=== PATIENT | male | born 1985 | race Caucasian/White ===

== ENCOUNTER 2017-06-19 22:08 | Emergency (ER) | payer BC ==
[~2017-06-19] VITALS: Ht 167.6 cm; Wt 101.5 kg
[~2017-06-19 22:08] MED LIST: LEVE1TAB57 PO
[2017-06-19 22:23] VITALS: TEMP 37.1; Ht 167.6 cm; Wt 101.5 kg
[2017-06-19] MEDS ORDERED: DIAZEPAM 5MG TAB PO STA (22:49)
[2017-06-19] MEDS ORDERED: KPP/1000 PO ×2 (23:23)
[2017-06-20] MEDS ORDERED: IBUP-1451 PO (00:31)
--- NOTE | 2017-06-20 00:31 | EMERGENCY ROOM VISIT NOTE ---
History Report prepared by Jennifer: Dorene Leary Under the Supervision of: Dr. Shabbir Laws M.D. First contact with patient: 22:41 Chief Complaint: SHOULDER PAIN Stated Complaint: DISLOCATED L SHOULDER History of Present Illness The patient is a 32 year old male who presents to the Emergency Room with complaints of persistent left shoulder pain starting [employer]. The patient rolled over in bed and felt his shoulder pop. He has felt his shoulder pop before, but it usually does not become painful. He is having persistent pain and thinks that the shoulder might be dislocated. He can move his arm, but it is painful. He took some ibuprofen which did not help. He denies any history of dislocation or fracture to the left shoulder. He has been eating and drinking well. He denies any fever, chills, cough, or congestion. 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 He denies any family history of dislocations. 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 Review of Systems See HPI for pertinent positives and negatives. A total of ten systems were reviewed and were otherwise negative. Past Medical & Surgical Medical Problems: (1) Seizures Family History Seizures Social History Smoking Status: Never Smoker Alcohol Use: occasionally Marital Status: single Housing Status: lives alone Occupation Status: employed Current/Historical Medications Scheduled Levetiracetam (Keppra), 1,500 MG PO HS Levetiracetam (Keppra), 1,000 MG PO QAM Scheduled PRN Ibuprofen Tab (Motrin), 800 MG PO Q8H PRN for Pain Allergies Coded Allergies: Sulfa Antibiotics (Verified Allergy, Intermediate, RASH, 06/19/17) Physical Exam Vital Signs Date Time Temp Pulse Resp B/P (MAP) Pulse Ox O2 Delivery O2 Flow Rate FiO2 06/20/17 00:38 80 18 146/87 98 06/20/17 00:34 80 18 146/87 98 Room Air 06/19/17 22:23 37.1 87 16 149/97 97 Room Air Physical Exam GENERAL: Awake, alert, uncomfortable-appearing, in no acute distress HENT: Normocephalic, atraumatic. Oropharynx unremarkable. EYES: Normal conjunctiva. Sclera non-icteric. NECK: Supple. No nuchal rigidity. FROM. No JVD. RESPIRATORY: Clear to auscultation. CARDIAC: Regular rate, normal rhythm. Extremities warm and well perfused. Pulses equal. ABDOMEN: Soft, non-distended. No tenderness to palpation. No rebound or guarding. No masses. RECTAL: Deferred. MUSCULOSKELETAL: Chest examination reveals no tenderness. The back is symmetrical on inspection without obvious abnormality. There is no CVA tenderness to palpation. No joint edema. EXTREMITIES: Left shoulder deformity with tenderness in the glenohumeral joint, distal motor sensory intact. Limited active and passive ROM due to pain. NEURO: Normal sensorium. No sensory or motor deficits noted. SKIN: No rash or jaundice noted. Medical Decision & Procedures ER Provider Diagnostic Interpretation: X-ray: Per my interpretation, radiologist review. Left Shoulder X-ray: dislocated shoulder. Left Shoulder X-ray: normal anatomic alignment post reduction with probably Hill -Sachs deformity. Medications Administered Medications (Trade) Dose Ordered Sig/Jose Route Start Time Stop Time Status Last Admin Dose Admin Diazepam (Valium Tab) 5 mg NOW STAT PO 06/19/17 22:49 06/19/17 22:52 DC 06/19/17 23:02 5 MG Procedure Anterior Shoulder Dislocation Reduction Indication: left shoulder dislocation Verbal consent obtained. Risks and benefits were explained with the usual customary discussion. A time out was taken. Neurovascular examination before the procedure was normal. The left shoulder glenohumeral dislocation was reduced by Reyes technique with scapular manipulation, applying gentle downward inline traction on the humerus, with the elbow flexed at 90 degrees, while scapula manipulation was applied. This resulted in an easy reduction without complication. Neurovascular examination after the procedure was normal. The patient had significant pain relief and tolerated the procedure well. ED Course 2242: The patient was evaluated in room B3B. A complete history and physical exam was performed. 2248: Diazepam 5 mg PO. 6: The patient's shoulder was reduced according to the procedure note above. 0032: I reevaluated the patient. I discussed results and discharge instructions : he verbalized understanding and agreement. The patient is ready for discharge. Medical Decision I reviewed the patient's past medical history, medications, and the nursing notes as described above. Differential diagnosis: dislocation, subluxation, fracture. 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 Reports feeling a pop when pulling bed covers over. Denies sz episode or known prior shoulder dislocation although upon further question reports that years ago he had a seizure when he fell to the ground onto his left side and has ever since had shoulder pain particular after a sz, which occur every 6-12 months. Xray demonstrated likely anterior dislocation. Shoulder successfully reduced via Reyes technique with scapular manipulation per procedure note. Distal pulse, motor, sensory intact. Reduction confirmed on plain film. Sling placed. Findings and plan for follow-up d/w patient. Patient agreeable and d/c'd per discharge instructions. Medication Reconcilliation Current Medication List: was personally reviewed by me Blood Pressure Screening Patient's blood pressure: Elevated blood pressure Blood pressure disposition: Elevated BP felt to be situational Impression Primary Impression: Anterior shoulder dislocation Scribe Attestation The scribe's documentation has been prepared under my direction and personally reviewed by me in its entirety. I confirm that the note above accurately reflects all work, treatment, procedures, and medical decision making performed by me. Departure Information Dispostion Home / Self-Care Prescriptions Ibuprofen Tab (MOTRIN) 800 Mg Tab 800 MG PO Q8H Y for Pain for 14 Days, #42 TAB Prov: Shabbir Laws M.D. 06/20/17 Referrals Johan Jensen D.O. (PCP) Murphy Mejia M.D. Patient Instructions ED Dislocation Shoulder Redu, ED Sling and Cole, My [facility] Additional Instructions Please follow up with your primary care physician in the next 1-3 days and with orthopedics, Dr. Mejia, for re-evaluation. You had a shoulder dislocation that was successfully reduced. Ibuprofen for pain as needed. Sling for comfort and stability. Return to the emergency department for worsening symptoms as described in the accompanying instructions.
[2017-06-20 00:38] VITALS: BP 146/87; PULSE 80; O2SAT 98
--- NOTE | 2017-06-20 07:01 | DIAGNOSTIC IMAGING REPORT ---
L SHOULDER MIN 2 VIEWS ROUTINE CLINICAL HISTORY: Dislocation status post reduction. Left shoulder pain. COMPARISON: Left shoulder radiographs June 19, 2017. FINDINGS: Alignment of the left glenohumeral joint is anatomic status post reduction. No fracture is identified on this exam. Alignment of the left acromioclavicular joint is anatomic. IMPRESSION: Anatomic alignment of the left glenohumeral joint status post reduction. No fracture identified. Electronically signed by: Liban Pugh M.D. 06/20/2017 7:00 AM Dictated Date/Time: 06/20/2017 6:58 AM
--- NOTE | 2017-06-20 07:27 | DIAGNOSTIC IMAGING REPORT ---
L SHOULDER MIN 2 VIEWS ROUTINE CLINICAL HISTORY: shoulder pain / r/o dislocation COMPARISON STUDY: None. FINDINGS: There is a left anterior shoulder dislocation. No fractures identified. The left clavicle is intact. IMPRESSION: Left anterior shoulder dislocation. Electronically signed by: Edmundo Fair M.D. 06/20/2017 7:25 AM Dictated Date/Time: 06/20/2017 7:25 AM
== END 2017-06-20 00:39 | disposition home or self-care (01) ==
LOC: C.EDB 22:09
DX: S43.005A Unspecified dislocation of left shoulder joint, initial encounter (principal); X58.XXXA Exposure to other specified factors, initial encounter; G40.909 Epilepsy, unspecified, not intractable, without status epilepticus; Z79.899 Other long term (current) drug therapy; Z88.2 Allergy status to sulfonamides; Z82.0 Family history of epilepsy and other diseases of the nervous system

== ENCOUNTER 2017-09-06 15:38 | Emergency (ER) | payer OTHER, BC ==
[~2017-09-06] VITALS: Ht 167.6 cm; Wt 104.0 kg
[2017-09-06 15:41] VITALS: TEMP 36.4; Ht 167.6 cm; Wt 104.0 kg
--- NOTE | 2017-09-06 16:17 | DIAGNOSTIC IMAGING REPORT ---
L SHOULDER MIN 2 VIEWS ROUTINE CLINICAL HISTORY: 32 years-old Male presenting with left shoulder possible dislocation. TECHNIQUE: Internal rotation, external rotation, Grashey views of the left shoulder were obtained. COMPARISON: 06/20/2017. FINDINGS: Glenohumeral and acromioclavicular joints congruent. No subluxation of the humeral head. No deformity of the humeral head. Suggestion of a small curvilinear calcific fragment at the inferior glenohumeral joint. No advanced degenerative change. No radiographic soft tissue abnormality. IMPRESSION: Suggestion of a small curvilinear calcific fragment at the inferior glenohumeral joint, which was not clearly visible on prior exam. This could represent a small Bankart lesion. No current subluxation. Electronically signed by: Murphy Dunne M.D. 09/06/2017 4:16 PM Dictated Date/Time: 09/06/2017 4:14 PM
[2017-09-06 16:43] VITALS: BP 162/93; PULSE 92; O2SAT 97
--- NOTE | 2017-09-06 21:33 | EMERGENCY ROOM VISIT NOTE ---
History First contact with patient: 15:43 Chief Complaint: SHOULDER DISLOCATION Stated Complaint: LT SHOULDER DISLOCATION-WC History of Present Illness The patient is a 32 year old male who presents to the Emergency Room with complaints of left shoulder pain it began just prior to arrival. 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 The patient states that as he was getting out of the vehicle he felt a popping sensation and immediate pain in the left shoulder. This did evidently occur at work, and he immediately came to the ER. The patient does have a history of shoulder dislocation in the past. Previous dislocations have been the result of seizures. The patient has never seen orthopedics for this. He rates his current discomfort a 9.5/10. No numbness or paresthesias. No distinct falls or other trauma. No pain of the head, neck , chest, or remaining extremities. Review of Systems More than 10 systems were reviewed and otherwise negative with the exception of history of present illness. Past Medical/Surgical History Medical Problems: (1) Seizures Family History Seizures Social History Smoking Status: Never Smoker Alcohol Use: occasionally Marital Status: single Housing Status: lives alone Occupation Status: employed Current/Historical Medications Scheduled Levetiracetam (Keppra), 1,500 MG PO HS Levetiracetam (Keppra), 1,000 MG PO QAM Physical Exam Vital Signs Date Time Temp Pulse Resp B/P (MAP) Pulse Ox O2 Delivery O2 Flow Rate FiO2 09/06/17 16:43 92 18 162/93 97 09/06/17 15:41 36.4 92 18 162/93 97 Room Air Physical Exam VITALS: Vitals are noted on the nurse's note and reviewed by myself. Vital signs stable. GENERAL: Well-developed, well-nourished, white male, who is laying flat on his emergency department bed with his left arm hanging towards the ground. HEAD: Normocephalic atraumatic. NECK: Supple without nuchal rigidity. No lymphadenopathy. No thyromegaly. Cervical spine is nontender. HEART: Regular rate and rhythm without murmurs gallops or rubs. LUNGS: Clear to auscultation bilaterally without wheezes, rales or rhonchi. No retractions or accessory muscle use. MUSCULOSKELETAL: No muscle atrophy, erythema, or edema noted. No tenderness noted throughout the scapula or anterior shoulder. No numbness or paresthesias. NEURO: Patient was alert and oriented to person place and time. CN II through XII grossly intact. Deep tendon reflexes 2+ throughout. Medical Decision & Procedures ED Course Physical exam and history were performed. Nursing notes, EMR, and Medication List were personally reviewed. Patient appears to have left shoulder pain and possible dislocation. Nursing did position the patient onto his belly in the ER bed. During my auscultation of the patient's back, the patient reported feeling and hearing a "pop" in the left shoulder with immediate improvement of pain. The patient indicated that he felt like his shoulder return into position. The patient was placed onto his back, and did not have significant pain on palpation. X-ray was obtained and read does reveal appropriate anatomic placement. No other significant acute findings are noted. Overall the patient appears well for discharge home. I do suspect the shoulder was dislocated and reduced. The patient will be given an arm sling for comfort. The patient needs to follow with orthopedics for further care and management. I suspect the shoulder is very lax, which is causing the very easy dislocation and reduction. The patient is to use [id number] analgesics and follow with Workmen's Comp. He was otherwise invited back to the ER with any new, worsening, or concerning symptoms. The chart was completed utilizing [employer] Speech Voice Recognition Software. Grammatical errors, random word insertions, pronoun errors, and incomplete sentences are an occasional consequence of this system due to software limitations, ambient noise, and hardware issues. Any formal questions or concerns about the content, text, or information contained within the body of this dictation should be directly addressed to the provider for clarification. . Medical Decision Differential diagnosis includes, but is not limited to: Sprain, strain, fracture , dislocation, subluxation, contusion, and others Impression Primary Impression: Shoulder dislocation Departure Information Dispostion Home / Self-Care Condition GOOD Referrals Murphy Brown M.D. Forms HOME CARE DOCUMENTATION FORM, IMPORTANT VISIT INFORMATION Patient Instructions My [facility] Additional Instructions You were seen and evaluated today on an emergency basis only. This is not a substitute for, or an effort to provide, complete comprehensive medical care. It is not possible to recognize and treat all injuries or illnesses in a single emergency department visit. For this reason it is recommended that you followup with Orthopedics, Dr. Brown's office, by telephone tomorrow morning to arrange a follow-up visit. Wear your arm sling until seen by orthopedics. Do not lift with the left arm until cleared by orthopedics. For baseline pain relief you may alternate ibuprofen and acetaminophen every 4 hours for pain control. Take 600 mg ibuprofen (Advil) and then 4 hours later take 1000 mg acetaminophen (Tylenol). Do not take more than 3000 mg acetaminophen in a single day. You are welcome to return to the emergency department anytime with new, worsening, or concerning symptoms.
[2017-09-06] MEDS ORDERED: KPP/1000 PO ×2 (23:23)
== END 2017-09-06 16:44 | disposition home or self-care (01) ==
LOC: C.EDB 15:39 → C.EDD 16:44
DX: S43.005A Unspecified dislocation of left shoulder joint, initial encounter (principal); X58.XXXA Exposure to other specified factors, initial encounter; Y93.89 Activity, other specified; Y92.812 Truck as the place of occurrence of the external cause; Y99.0 Civilian activity done for income or pay; R56.9 Unspecified convulsions; Z82.0 Family history of epilepsy and other diseases of the nervous system